=== PATIENT | female | born 1970 | race Caucasian/White ===

== ENCOUNTER 2024-04-18 15:51 | Observation (INO) | payer OTHER, SELFPAY ==
[2024-04-18] VITALS (11 sets, daily range): BP systolic 117–143; BP diastolic 59–79; PULSE 72–90; BMI 28.5
[2024-04-18 11:14] LABS: Glucose - Point of Care 138 mg/dl (70-99)
[2024-04-18 11:44] LABS: % Basophils 0.5 % (0-2); % Eosinophils 1.6 % (0-6); % Immature Granulocytes 1.5 % (0-0.5); % Monocytes 4.9 % (1.7-9.3); % Neutrophils 49.5 % (42.2-75.2); Absolute Basophils 0.1 10^3/uL (0-0.2); Absolute Eosinophils 0.2 10^3/uL (0-0.7); Absolute Immature Granulocytes 0.1 10^3/uL (0-0.05); Absolute Lymphocytes 3.9 10^3/uL (1.2-3.4); Absolute Monocytes 0.5 10^3/uL (0.1-0.6); Absolute Neutrophils 4.6 10^3/uL (1.4-6.5); Hematocrit 40.7 % (37.0-47.0); Hemoglobin 13.6 g/dL (12.0-16.0); Mean Corp Hgb Conc. 33.4 g/dL (33.0-37.0); Mean Corpuscular Hgb 27.6 pg (27.0-31.0); Mean Corpuscular Volume 82.7 fL (81.0-99.0); Mean Platelet Volume 9.3 fL (7.4-10.4); Nucleated Red Blood Cells % 0 %; Platelet Count 399 10^3/uL (130-400); Red Blood Cell Count 4.92 10^6/uL (4.20-5.40); Red Cell Dist. Width 13.2 % (11.5-14.5); White Blood Cell Count 9.4 10^3/uL (4.8-10.8)
[2024-04-18 12:02] LABS: COVID-19 Antigen Negative (Negative)
[2024-04-18 12:03] LABS: ALT (SGPT) 26 U/L (0-35); AST (SGOT) 38 U/L (14-36); Albumin 5.5 g/dl (3.5-5.0); Alkaline Phosphatase 80 U/L (38-126); Blood Urea Nitrogen 17 mg/dl (7-17); Calcium 9.7 mg/dl (8.4-10.2); Carbon Dioxide 19 mmol/L (22-30); Chloride 104 mmol/L (98-107); Glucose 169 mg/dl (70-99); Potassium 4.2 mmol/L (3.5-5.1); Sodium 141 mmol/L (135-145); Total Bilirubin 0.7 mg/dl (0.2-1.3); Total Protein 9.2 g/dl (6.3-8.2); eGFR > 60.00
--- NOTE | 2024-04-18 12:16 | EDRN ---
re reval pt
pt c/o increase nausea/dizziness and ROJAS
--- NOTE | 2024-04-18 12:47 | ED.GENMED ---
History of Present Illness
General
Chief Complaint: Dizziness
Source: patient and spouse
Exam Limitations: none
Time Seen by Provider: 04/18/24 12:34
Nursing documentation reviewed up to this point in time: agreed with
History of Present Illness
History of Present Illness:
53-year-old female with a past medical history of hypertension who presents to the emergency department with her for evaluation of dizziness. Patient reports onset of symptoms this morning when she woke up and it been constant since that
time. She reports a intense spinning sensation worse with head movement. Somewhat better when sitting still. She reports associated headache. She reports associated nausea and multiple episodes of vomiting. She had some chills and was very
hesitant to move according to her . Brought her to the emergency to be evaluated. She denies any fever. She denies any cough, sore throat, rhinorrhea. She denies any chest pain or shortness of breath, palpitations. She denies any
abdominal pain or diarrhea. She denies similar symptoms in the past.
Review of Systems
Review of Systems
All Other Systems: ROS reviewed and negative except as documented in HPI and ROS
Constitutional: Reports chills; Denies fever
EENT: Denies sore throat or runny nose
Respiratory: Denies cough or trouble breathing
Cardiac: Denies chest pain or palpitations
ABD/GI: Reports nausea and vomiting; Denies abdominal pain or diarrhea
: Denies flank pain
Musculoskeletal: Denies neck pain or back pain
Neurological: Reports dizzy and headache; Denies weakness or numbness
Phy Exam
Physical Exam
Physical Exam:
General: Awake, alert, oriented x3; no acute distress
Head: Normocephalic, atraumatic
Eyes: Conjunctiva normal, EOMI, rightward nystagmus, no vertical or rotary nystagmus
Ears: TMs clear bilaterally
Throat: Airway intact, handling secretions
Neck: Trachea midline, supple without meningismus
Lungs: Clear to auscultation bilaterally, no wheezing, rales, rhonchi
Heart: Regular rate and rhythm, no murmurs, gallops, or rubs
Abd: Soft, non distended, nontender
Neuro: Cranial nerves intact, no limb ataxia, speech fluid, motor and sensory intact in all extremities
Extremities: No edema in extremities, warm and well-perfused
Scores
Heart Failure Risk
Heart Failure Risk Score: Not Applicable
Heart Score for Chest Pain Patients
STEMI patient?: Not applicable
Withdrawal Assessment of Alcohol
Withdrawal Assessment Completed?: Not applicable
Course
Orders/Labs/Results
Orders:
Orders
04/18/24 11:12
Electrocardiogram (*1) Urgent
Reason for Study: Tachycardia
04/18/24 11:13
EKG- Treatment ONCE
04/18/24 11:14
, Urine Qualitative Screen [HCG, Urine Qualitative Screen] Urgent
Date Specimen was Collected: 04/18/24
Time Specimen was Collected: 11:15
04/18/24 11:15
Test Result ONCE
04/18/24 11:32
COVID-19 Antigen Urgent
Source: Nasal Swab
Complete Blood Count/With Diff Urgent
Comprehensive Metabolic Panel Urgent
Influenza A+B Rapid Molecular Urgent
[facility] Source: Nasal Swab
Specimen Description:
Date Specimen was Collected: 04/18/24
Time Specimen was Collected: 11:15
04/18/24 12:17
CT Head W/o Iv Contrast Urgent
Comment:
Reason For Exam: dizziness and ROJAS
04/18/24 12:46
0.9% Sodium Chloride 1000 ml [Nss] 1,000 ml IV BOLUS
Ondansetron Injectable [Zofran] 4 mg IV NOW STA
diazePAM [Valium Injection] 2 mg IV NOW STA
04/18/24 14:23
Meclizine [Antivert] 25 mg PO NOW STA
Abnormal Lab Results
04/18/24 04/18/24
11:13 11:32
Abs Immat Gran (auto) 0.1 H 10^3/uL
(0-0.05)
Absolute Lymphs (auto) 3.9 H 10^3/uL
(1.2-3.4)
Immature Gran % 1.5 H %
(0-0.5)
Carbon Dioxide 19 L mmol/L
(22-30)
Glucose 169 H mg/dl
(70-99)
AST 38 H U/L
(14-36)
Total Protein 9.2 H g/dl
(6.3-8.2)
Albumin 5.5 H g/dl
(3.5-5.0)
POC Glucose 138 H mg/dl
(70-99)
04/18/24 11:32
04/18/24 11:32
Vital Signs
Initial and Last Documented VS:
Initial Vital Signs
Pulse Resp BP Pulse Ox
98 16 130/74 98
04/18/24 11:15 04/18/24 11:15 04/18/24 11:15 04/18/24 11:15
Last Documented Vital Signs
Temp Pulse Resp BP Pulse Ox
36.5 C 98 16 129/68 95
04/18/24 12:02 04/18/24 11:15 04/18/24 11:15 04/18/24 14:00 04/18/24 14:00
MDM/Problems Addressed
Differential Diagnosis Includes:
Peripheral vertigo�BPPV, labyrinthitis, eustachian tube dysfunction, etc; central vertigo must be considered causes would include brain mass, brain bleed, ischemic stroke, dissection, etc; central vertigo considered much less likely based on history
and exam
MDM/Problems Addressed:
53-year-old female presents for evaluation of dizziness associated with headache, nausea, vomiting; symptoms much worse with movement. Vitals and exam as above. She had labs sent in triage including a CBC and a CMP�CMP showed random glucose 169,
marginal anion gap metabolic acidosis likely from vomiting. Her COVID and flu swabs were negative. She had a CT head�radiology report is pending but on my independent review no clear acute pathology noted. She had an EKG which shows sinus rhythm.
Clinical suspicion is for peripheral vertigo. Will plan to treat with fluids, Valium, Zofran. Reassess after the above.
Patient feeling a bit better no longer nauseated but still feeling dizzy. Will continue to monitor.
Reassessment patient still feeling marked dizziness�attempted to sit up on the side of the bed to try and stand but became severely dizzy. Treat with meclizine and reassess.
Patient still markedly symptomatic after ED treatment. Although her presentation does seem consistent with peripheral vertigo given her intractable symptoms will admit for symptom management and further evaluation as needed. Case discussed with
hospitalist for admission.
*Radiology
Radiology exam reviewed: preliminary read by ED provider and radiology read reviewed
*Pulse Oximetry
Patient hypoxic: no
*EKG
Interpreted by ED Provider?: Yes
Heart Rate: 83
Rate: normal
Rhythm: sinus
Anvik: normal axis
Interval: normal interval
QRS Pattern: normal QRS
Ischemia: non-specific ST changes
*Critical Care Note
Total Time (30-74mins, 75-104mins- exclusive of procedures): Not Applicable
Data Reviewed
Source: patient and spouse
Patient Management
Discussion with other providers: Hospitalist (Discussed with hospitalist)
Escalation/DeEscalation of care consider admission/obs:
Admission indicated
ED Attending Note
-
Portions of this chart may have been created with voice recognition software.� Occasional wrong word or��sound alike� substitutions may have occurred due to the inherent limitations of voice recognition software.
Discharge Plan
Departure
Patient Disposition: Admit
Date of Disposition: 04/18/24
Time of Disposition: 14:35
Admit to doctor: Kodi
Presentation/result/management discussed w/ accepting MD/DO: Hospitalist
Discharge Problem:
Vertigo
Referrals:
Negar Lancaster DO [Family Provider] -
Interventions
Interventions:
*Risk Screen - Suicide Last Done: 04/18/24 13:25
*General Assessment Last Done: 04/18/24 13:25
*Neglect/Abuse Screening Last Done: 04/18/24 13:25
ED- Fall Risk Assessment Last Done: 04/18/24 13:25
*ED COVID-19 Vaccine History Last Done: 04/18/24 13:25
ED- Cardiac Assessment Last Done: 04/18/24 13:25
ED- Neurological Assessment Last Done: 04/18/24 13:25
Discharge Date and Time
Print Language: TELUGU
[2024-04-18] MEDS: NSS 1000 IV ×2 (13:27→20:26)
[2024-04-18] MEDS: VALIUM INJECTION 2 MG IV (13:27)
[2024-04-18] MEDS: ZOFRAN 4 MG IV (13:27)
[2024-04-18] MEDS: ANTIVERT 25 MG PO ×2 (14:33→20:27)
--- NOTE | 2024-04-18 14:53 | HPS.HSE ---
Addendum entered and electronically signed by Rola Mariee DO 04/18/24 16:16:
The patient is seen and examined, and I have reviewed the patient with BAR TURNER, Mary. I agree with her history and physical, assessment and plan of care as per below. She is still experiencing the room spinning, nausea in improving in ED.
VSS/AF
Neuro no focal deficits
HEENT-horizontal nystagmus
CTA head no acute findings
EKG QTc 500 and repeat 483
Acute onset of vertigo that is persistent, sensation of room spinning, a/w n/v and horizontal nystagmus, positive Real Hallpike maneuver
-cont with meclizine, scheduled and prn valium, and PT eval for vestibular therapy
-IVF
Original Note:
Family Physician
-
Family Physician: Negar Lancaster
Chief Complaint
-
spinning sensation
History of Present Illness
53-year-old female with son Paul Molina for his mother. He reports she states when she woke up this morning she had an intense spinning sensation that became worse with head movement and somewhat better when sitting still. She does
report nausea and multiple episodes of vomiting and chills. She denies fever, neck pain, neck stiffness, sore throat, rhinorrhea, cough, shortness of breath, chest pain, palpitations, abdominal pain, diarrhea, urinary symptoms. She did fly March
back from [place]. She has had no upper respiratory or ENT issues since then. She also complains of dizziness daily for the past 6 months with blood pressures at home varying from 140 systolic down to 90 systolic. She has not kept a journal
of when this occurs and symptoms associated with it. She has a new primary care provider appointment in 10 days. I advised her son for her to keep a journal of her blood pressure multiple times a day including when she is symptomatic with blood
pressure and list of symptoms. She does take amlodipine 5 mg/perindopril 5 mg daily. I advised the son she might be taking too much given this is double blood pressure medication for her hypertension.
In the ER she was noted to have a positive Real-Hallpike test in the ER with persistent vertigo despite Valium, meclizine, IV fluids.
Medical History
Past Medical History
Past Medical History: Reports Other
Additional Past Medical History:
Hypertension
Depression
Past Surgical History: Reports Tonsilectomy
Social History
Tobacco: Non-smoker
Alcohol: None
Drug: None
Personal: Single
Living: With Family
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
Family History
Family History: Other (Mother history hypertension, end-stage renal disease age 80, father age 80s CVA, 1 brother 1 sister hypertension)
Allergies / Home Medications
Allergies reflects when Allergies were last updated in [facility].
Home Medications with original date entered in [facility]
Allergy/Medication List:
Allergies
Allergy/AdvReac Type Severity Reaction Status Date / Time
No Known Allergies Allergy Verified 04/18/24 11:18
Home Medications
Amlodipine 5 / Perindopril 5 1 dose PO DAILY 04/18/24
paroxetine HCl 20 mg tablet 20 mg PO QPM 04/18/24
Review of Systems
-
History Source: Patient and Family (Son PAUL)
A 12 point ROS was completed and negative except as noted: Yes
Constitutional: Denies Fever, Weight Gain, Weight Loss, Fatigue or Chills
EENT: Reports Other (No fullness in ears, negative rhinorrhea); Denies Sore Throat or Runny Nose
Respiratory: Denies Cough or Trouble Breathing
Cardiac: Denies Chest Pain, Diaphoresis, Palpitations or Syncope
Abdomen/GI: Reports Nausea and Vomiting; Denies Abdominal Pain, Diarrhea, Constipated, Bloody Stools or Black Stools
: Denies Dysuria, Frequency, Flank Pain, Incontinence or Difficulty Voiding
Musculoskeletal: Denies Joint Pain or Edema
Skin: Denies Itching or Rash
Neurological: Reports Dizzy; Denies Headache or Weakness
Endocrine: Reports No Symptoms
Hematologic/Lymphatic: Reports No Symptoms
Psych: Reports Calm
Physical Exam
Vital Signs
Vital Signs
Temp Pulse Resp BP Pulse Ox
97.7 F 98 16 129/68 95
04/18/24 12:02 04/18/24 11:15 04/18/24 11:15 04/18/24 14:00 04/18/24 14:00
Physical Exam
General: Conversant; No Pain, Fever or Chills
HEENT: NormoCephalic, Anicteric, PERRLA, Biehle Conjunctivae, No Ptosis, Neck Nontender and Other (Negative nuchal rigidity, slight nystagmus to the right with EOMs, dizziness reported with moving head in any direction); No Pharyngeal Erythema
Respiratory: Clear; No Wheezes, Rales or Rhonchi
Cardiac: S1/S2 and Regular Rhythm; No Murmur, Rub, Gallop or Peripheral Edema
Breast: Deferred by me
GI: Soft, Non Tender, Non Distended, Normal Bowel Sounds and No Hepatosplenomegaly
Rectal: Deferred by Provider
Genito-urinary: Deferred by me
Musculoskeletal: No Clubbing, No Cyanosis and No Edema
Skin: Warm and Dry; No Rash or Jaundice
Neuro: AO x 3 (According to son answers all questions appropriately in her [place] language Romansh), No Motor Deficits, Nonfocal/grossly intact, Cranial Nerves Intact and No Sensory Deficits; No Slurred Speech, Facial Droop, Tremors or Sedated
Psych: Calm
Laboratory Results
-
04/18/24 11:32
04/18/24 11:32
Laboratory Results
Total Bilirubin 0.7 mg/dl (0.2-1.3) 04/18/24 11:32
AST 38 U/L (14-36) H 04/18/24 11:32
ALT 26 U/L (0-35) 02/03/25 11:32
Alkaline Phosphatase 80 U/L (38-126) 04/18/24 11:32
Data Reviewed
-
CT Scan: Report Reviewed by me
Lab Data: Labs Reviewed by me
Impression/Plan
-
Impression/plan:
Observation tele
#Acute dizziness likely BPPV
IV NSS 1 L given in ER, continue IV NSS 100 cc/h
-Continue Valium 3 times daily
-Continue meclizine as needed
-Consult PT for vestibular therapy
CT head: No acute intracranial abnormality
EKG: NSR 76 bpm, QTc 483 MS, prolonged QTc otherwise no abnormalities
EKG: NSR 83 bpm, QTc 500 MS
#Daily Lightheadeness concern for orthostatic hypotension/HTN/benign
Patient reports at home systolic blood pressure varies from 140 systolic to 90 systolic associated with dizziness for the past 6 months
She new primary care provider appointment in 10 days. I advised her son for her to keep a journal of her blood pressure multiple times a day including when she is symptomatic with blood pressure and list of symptoms.
BP 129/68
-Hold amlodipine 5 mg/perindopril 5 mg daily-would consider on discharge only continuing amlodipine given symptoms of hypotension at home with systolic dropping to 90 and dizziness
#Hyperglycemia�mild
BS 169 check HgbA1c will hold on any insulin
DVT prophylaxis
SCDs
Full code
[2024-04-18 15:08] LABS: HCG, Serum Qualitative Screen Negative
[2024-04-18] MEDS: PAXIL 20 MG PO (20:27)
[2024-04-18] MEDS: VALIUM 2 MG PO (22:34)
[2024-04-18] MEDS: COMPAZINE 5 MG IV (22:37)
[2024-04-19] VITALS (7 sets, daily range): BP systolic 113–131; BP diastolic 64–76; PULSE 70–78
[2024-04-19] MEDS: ANTIVERT 25 MG PO ×3 (01:55→17:42)
[2024-04-19] MEDS: NSS 1000 IV (07:27)
[2024-04-19 08:10] LABS: % Basophils 0.3 % (0-2); % Eosinophils 0.2 % (0-6); % Immature Granulocytes 0.4 % (0-0.5); % Monocytes 5.7 % (1.7-9.3); % Neutrophils 66.4 % (42.2-75.2); Absolute Immature Granulocytes 0.1 10^3/uL (0-0.05); Absolute Lymphocytes 3.5 10^3/uL (1.2-3.4); Absolute Monocytes 0.7 10^3/uL (0.1-0.6); Absolute Neutrophils 8.5 10^3/uL (1.4-6.5); Hematocrit 37.8 % (37.0-47.0); Hemoglobin 12.4 g/dL (12.0-16.0); Mean Corp Hgb Conc. 32.8 g/dL (33.0-37.0); Mean Corpuscular Hgb 27.3 pg (27.0-31.0); Mean Corpuscular Volume 83.3 fL (81.0-99.0); Mean Platelet Volume 9.5 fL (7.4-10.4); Nucleated Red Blood Cells % 0 %; Platelet Count 357 10^3/uL (130-400); Red Blood Cell Count 4.54 10^6/uL (4.20-5.40); Red Cell Dist. Width 13.7 % (11.5-14.5); White Blood Cell Count 12.8 10^3/uL (4.8-10.8)
[2024-04-19] MEDS: COMPAZINE 5 MG IV (08:16)
[2024-04-19 08:58] LABS: Glycohemoglobin (HgbA1c) 5.5 % (4.0-5.6)
[2024-04-19 09:28] LABS: Blood Urea Nitrogen 15 mg/dl (7-17); Calcium 8.9 mg/dl (8.4-10.2); Carbon Dioxide 20 mmol/L (22-30); Chloride 107 mmol/L (98-107); Estimated Creatinine Clearance 87 ml/min; Glucose 80 mg/dl (70-99); HDL Cholesterol 50 mg/dl; LDL Cholesterol, Calculated 181 mg/dl; Potassium 4.3 mmol/L (3.5-5.1); Sodium 141 mmol/L (135-145); Total Cholesterol 270 mg/dl (50-199); Triglyceride 198 mg/dl (10-149); Very Low Density Lipoprotein 39 mg/dl (0-30); eGFR > 60.00
[2024-04-19 11:00] LABS: Vitamin B12 715 pg/ml (239-931)
--- NOTE | 2024-04-19 11:45 | CM ---
CM reviewed chart, patient seen bedside with son and spouse, son to translate. Per son, patient resides with spouse and son in a multiple story home, no steps to enter. Patient is independent with ADLs/IADLs, denies DME, VN, or SNF history. Son
confirms primary physician Negar Lancaster, patient has appointment 04/28/24. Pharmacy [facility]. OBS form provided, refused to sign, placed in chart. Per PT, recommending outpatient vestibular therapy, will need script upon discharge. CM will
continue to follow for all discharge planning needs.
Plan; home with family, will need script for outpatient PT
[2024-04-19] MEDS: DELTASONE 30 MG PO (14:18)
[2024-04-19] MEDS: LOW STRENGTH ASPIRIN 81 MG PO (14:18)
--- NOTE | 2024-04-19 16:25 | W.PN.HOSP.TC ---
Today's Communication/Plan
-
see plan
Assessment / Plan
Assessment / Plan
Impression:
Presentation with acute onset of vertigo
Benign hypertension.
Anxiety/depression.
Plan:
Reports acute onset of positional vertigo.
Exam with no focal findings other than horizontal nystagmus with the right with face to the left.
Reports no tinnitus or congestion. Denies any recent upper respiratory tract infection.
Patient's son at the bedside reports elevated blood pressure with systolic [address] presentation[address]
CT scan of the head with no acute abnormalities.
Vestibular evaluation today confirms resting nystagmus with Hallpike to the left with persistent dizziness.
Differential diagnosis most likely BPPV/vestibular neuritis, less likely CVA/TIA.
Given risk factors including hypertension, old given persistent symptoms as well as nausea, would pursue additional imaging with MRI to rule out brainstem infarct
Continue cardiac monitoring.
Lipid profile reviewed with LDL 181.
Hemoglobin A1c 5.5.
Initiated on aspirin empirically.
Start prednisone for presumed vestibular neuritis.
Continue symptomatic management with Antivert.
Continue diazepam 2 mg p.o. 3 times daily as needed, with caution oversedation
Consider neurologic evaluation if persistent symptoms or new findings on MRI.
Anticipated Discharge: 24 - 48 hours
Subjective/Interval History
-
Date of Service: April 19, 2024
Objective Data
-
Labs:
Laboratory Results
04/19/24 04/19/24 04/19/24
07:25 07:25 07:25
WBC 12.8 H
Hgb 12.4
Hct 37.8
Plt Count 357
Sodium Cancelled 141
Potassium Cancelled 4.3
Chloride Cancelled
Carbon Dioxide
BUN
Creatinine
Glucose
Calcium
04/19/24 04/19/24 04/19/24
07:25 07:25 07:25
WBC
Hgb
Hct
Plt Count
Sodium
Potassium
Chloride 107
Carbon Dioxide Cancelled 20 L
BUN Cancelled 15
Creatinine Cancelled
Glucose
Calcium
04/19/24 04/19/24 04/19/24
07:25 07:25 07:25
WBC
Hgb
Hct
Plt Count
Sodium
Potassium
Chloride
Carbon Dioxide
BUN
Creatinine 0.7
Glucose Cancelled 80
Calcium Cancelled 8.9
Vital Signs:
Vital Signs
Temp Pulse Resp BP Pulse Ox
98.5 F 60 17 117/67 96
04/19/24 15:00 04/19/24 15:00 04/19/24 15:00 04/19/24 15:00 04/19/24 15:00
I&O
04/18/24 04/19/24 04/20/24
06:59 06:59 06:59
Intake Total 240 / 240 480 / 480
Balance 240 / 240 480 / 480
Physical Exam
-
General: Well Developed and No Apparent Distress
HEENT: Normocephalic, Atraumatic and Moist Mucous Membranes
Respiratory: Clear to Auscultation
Cardiac: Regular Rhythm and S1/S2; Negative Murmur, Rub or Gallop
GI: Soft, Nontender, Nondistended and Normal Bowel Sounds; Negative Organomegaly
Rectal: Deferred by Provider
Musculoskeletal: No Clubbing, No Cyanosis and No Edema
Skin: Negative Rash
Neuro: Nonfocal/Grossly Intact and Other (Horizontal nystagmus with rapid face to the left)
[2024-04-19] MEDS: PAXIL 20 MG PO (17:42)
--- NOTE | 2024-04-19 19:15 | PTCARENOTE ---
Pt received from day shift RN at change of shift. Pt pleasant, AAOX3, VSS, absent of pain at this time. Pt does not complain of dizziness or nauseas at this time. Pt bed in lowest position and call galloway within reach. Pt educated on importance of
call galloway usage, pt relays understanding and cooperation. Will continue with current plan of care.
[2024-04-20] MEDS: ANTIVERT 25 MG PO ×2 (01:43→10:27)
[2024-04-20 03:00] VITALS: BP 124/67
[2024-04-20 07:00] VITALS: BP 133/73
[2024-04-20] MEDS: DELTASONE 30 MG PO (07:55)
[2024-04-20] MEDS: LOW STRENGTH ASPIRIN 81 MG PO (07:55)
[2024-04-20 11:00] VITALS: BP 129/74
--- NOTE | 2024-04-20 14:18 | W.DS.TRANS ---
DC Summary - Public Relations Associate
-
Discharge Instructions:
Discharge Diagnosis/Procedures Vestibular neuritis
Diet Regular
Instructions:
Stand-Alone Forms:
Changes to Home Medications: Yes
Discharge Medications:
DC Medications w/original date entered in [facility]
Amlodipine 5 / Perindopril 5 1 dose PO DAILY Blood Pressure 04/18/24
paroxetine HCl 20 mg tablet 20 mg PO QPM Depression 04/18/24
meclizine 25 mg tablet 25 mg PO Q8H PRN vertigo #30 tabs 04/20/24
methylprednisolone 4 mg tablets in a dose pack (Medrol (Carlos)) See Rx Instructions PO .COMPLEX #21 ea 04/20/24
Home Medication Changes
Steroid taper
Pending Results: No
--- NOTE | 2024-04-20 14:35 | CM ---
CM reviewed chart, patient seen with son. Patient for discharge today, son to transport home. Patient provided with walker from PT, outpatient script for vestibular therapy provided. CM will continue to follow for all discharge planning needs.
Plan; home with script for vestibular therapy
[2024-04-20 15:00] VITALS: BP 143/76
--- NOTE | 2024-04-20 16:01 | PTCARENOTE ---
Patient AAOX4, VSS, Patient in NAD and states minimal dizziness at this time. family at bedside. heart monitor removed. patient preparing for discharge
== END 2024-04-20 16:35 | disposition home or self-care (01) ==
LOC: 4 WEST ACU 15:51
PROVIDERS: Clinical Nurse Specialist Family Health; Emergency Medicine; ADMITTING PHYSICIAN Internal Medicine; ATTENDING PHYSICIAN Internal Medicine; EMERGENCY PHYSICIAN Emergency Medicine; FAMILY PHYSICIAN Family Medicine
DX: H81.20 Vestibular neuronitis, unspecified ear (principal); R00.0 Tachycardia, unspecified; H55.09 Other forms of nystagmus; R51.9 Headache, unspecified; E87.20 Acidosis, unspecified; R73.9 Hyperglycemia, unspecified; R94.31 Abnormal electrocardiogram [ECG] [EKG]; I10 Essential (primary) hypertension; F41.9 Anxiety disorder, unspecified; F32.A Depression, unspecified; Z82.49 Family history of ischemic heart disease and other diseases of the circulatory system; Z82.3 Family history of stroke; Z84.1 Family history of disorders of kidney and ureter; Z11.52 Encounter for screening for COVID-19
CPT/HCPCS: 70450; 70551; 80048; 80053; 80061; 82607; 82962; 83036; 84703; 85025; 87502; 87811; 93005; 96361; 96374; 96375; 97112; 97163; 99285; G0378